=== PATIENT | female | born 1980 | race Caucasian/White ===

== ENCOUNTER 2019-01-05 12:40 | Emergency (ER) | payer BC ==
[~2019-01-05] VITALS: Ht 167.6 cm; Wt 68.0 kg
[2019-01-05 12:58] VITALS: BP_SYST 124
[2019-01-05] MEDS ORDERED: KETOROLAC TROMETHAMINE 30 MG VIAL IM ONE (13:15)
--- NOTE | 2019-01-05 13:20 | NUR ---
Patient to ER bed 08 for evaluation. Side rails up.
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
--- NOTE | 2019-01-05 13:21 | NUR ---
DANIELLE Capellan examining patient.
--- NOTE | 2019-01-05 13:26 | NUR ---
Toradol 30mg IM to L deltoid administered. Pt tolerated well. No adverse reactions noted.
--- NOTE | 2019-01-05 14:17 | NUR ---
patient states she feels better with the pain killer. patient states pain in back is a 6/10 now.
[2019-01-05 14:30] VITALS: BP_SYST 122
--- NOTE | 2019-01-05 14:30 | NUR ---
Patient given written and verbal discharge instructions and verbalizes understanding. ER MD discussed with patient the results and treatment provided. Patient in stable condition. ID arm band removed. IV catheter removed intact and dressing applied, no active bleeding. Rx of Naproxen given. Patient educated on pain management and to follow up with PMD. Pain Scale 6/10. patient does not wish to have any other pain reliever. Opportunity for questions provided and answered. Medication side effect fact sheet provided.
== END 2019-01-05 14:30 | disposition home or self-care (01) ==
LOC: SED 12:40
DX: S16.1XXA Strain of muscle, fascia and tendon at neck level, initial encounter (principal); S29.012A Strain of muscle and tendon of back wall of thorax, initial encounter; V28.4XXA Motorcycle driver injured in noncollision transport accident in traffic accident, initial encounter; Y93.89 Activity, other specified; Y92.411 Interstate highway as the place of occurrence of the external cause; Y99.8 Other external cause status
CPT/HCPCS: 72040; 72072; 96372; 99283; J1885